=== PATIENT | female | born 1990 | race Caucasian/White ===

== ENCOUNTER 2022-03-17 16:00 | Outpatient (RCR) | payer OTHER, SELFPAY ==
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
--- NOTE | 2021-12-30 14:51 | PT.OPPOC ---
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 (12/30/21) Other specified dyspareunia (12/30/21) Pelvic and perineal pain (12/30/21) Visit Care Team Role Provider Type Jez Diaz MD Attending Provider Physician Family Provider Primary Care Provider Referring Provider Specialty: CITY ROUTEMAN Address: [address] [place] [address], [address], [place], [address] Email: [email or web address] Plan Of Care PT-OP-T Assessment and Plan Start: 10/28/21 13:35 Freq: Status: Active Protocol: Document 12/30/21 13:42 [facility] (Rec: 12/30/21 14:31 [facility] [id number]) Physical Therapy Assessment Goals 3 Impairment Dysparunia and bleeding following intercourse Assistant Quality Manager Goal (LTG) Utilizing pelvic floor stretching, her compounding cream, manual therapy techniques, and dilator use Avril reports a overall decrease in both pain and bleeding with intercourse As of 12/30/21 Avril has been able to progress to the size medium dilator. She was given a size large today to work towards. Her is deployed until March so she has not been sexually active LTG Duration 12 weeks 2 Impairment left sided Transverse perineal tightness and pain Jail Goal (LTG) With manual therapy techniques there is reduced tightness and no tenderness to palpation at the left transverse perineum 12/30/21 I began MFR today as this is the first visit since her evaluation. She tolerated this well but is casing running machine tender and tight at the transverse perineum LTG Duration 12 weeks 1 Impairment left sided levator ani guarding and pain fro 3-6 on the pelvic clock, guarding to a lesser extent on the right side of the levator ani from 6 -9 Short Term Goal (STG) Avril is educated in stretches for her pelvic floor and dilator use to help reduce muscle spasm and guarding of the levator ani 12/30/21 Avril has been working on her stretches as well as dilator use. She is still guarded however it is not as severe as it was on inititial evaluation STG Duration 4 weeks Jail Goal (LTG) There is a overall reduction in muscle spasm and guarding of the lateral brewer of the levator ani LTG Duration 12 weeks Assessment Summary Assessment I was able to start MFR on the left side of the levator ani posteriorlateral wall with good tolerance today. She is still tight and guarded but able to tolerate manual therapy work today. She did well with contract relax and was able to both contract just a bit today as well as relax. On her initial eval she wasn' t able to contract at all due to tightness. I initiated EMG biofeedback for neuro awareness today of relaxed pelvic floor. Avril started with elevated tone at 7 and was able to relax to 3 uv. She is unable to do more than 3 pelvic floor contractions prior to pelvic floor guarding more. She has only been seen x 2 visits in PT so Avril would benefit from continued PT Physical Therapy Plan Frequency and Duration Duration of Treatment 12 Plan of Care Start Date 12/30/21 Plan of Care End Date 04/01/22 Therapeutic Interventions Therapeutic Interventions Home Exercise Program,Manual Therapy,Neuromuscular Re- education,Patient/Caregiver Education,Self-Care/Home Management,Soft Tissue Mobilization,Therapeutic Exercises Modalities Biofeedback Next Visit Focus/Plan Next Note Type Treatment Note Next Visit Plan review stretches given today, review dilator use instructions, continue manual therapy therapy techniques for the transverse perineum and left levator ani, relaxed awareness of the pelvic floor with diaphragmatic breathing. Plan of Care Dates Plan of Care Start Date 12/30/21 Plan of Care End Date 04/01/22 Electronically Signed by: Kely Feliz, PT 12/30/21 4730 If you are in agreement with this Plan of Care, please return a signed and dated copy. I have reviewed this Plan of Care and certify that the skilled therapy services above are required to meet the patient?s needs. Physician Signature Date Printed Name and Credentials Clinical Instructor Signature Printed Name and Credentials
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
== END 2022-06-29 14:48 | disposition home or self-care (01) ==
LOC: PHYS 16:00
PROVIDERS: Family Provider Obstetrics & Gynecology; PCP Obstetrics & Gynecology; Referring Provider Obstetrics & Gynecology; Visit Provider Obstetrics & Gynecology
DX: N94.19 Other specified dyspareunia (principal); F52.5 Vaginismus not due to a substance or known physiological condition; R10.2 Pelvic and perineal pain
CPT/HCPCS: 97110; 97140; 97161; 97535